=== PATIENT | male | born 1990 | race Caucasian/White ===

== ENCOUNTER 2016-07-03 17:57 | Emergency (ER) | payer OTHER ==
[2016-07-03 18:31] VITALS: PULSE 75; RESP 16; TEMP 97.5; O2SAT 97
[2016-07-03 18:50] VITALS: BP 144/76
--- NOTE | 2016-07-03 20:13 | EDPHY ---
H & P Time Seen by Provider: 07/03/16 18:52 HPI/ROS: CHIEF COMPLAINT: Right index finger laceration HISTORY OF PRESENT ILLNESS: 25-year-old male presents emergency department with a laceration to his right index finger that he sustained at work 4 hours prior to arrival. Patient reports his finger got pinched between 2 metal heavy rods at work. He is [id number], tetanus is up-to-date, denies numbness or tingling in his finger, denies other complaints. Smoking Status: Never smoked Physical Exam: GEN: Awake, alert, oriented, no acute distress RESP: nl resp effort MSK: Right index finger with full active flexion and extension against resistance, 2 point discrimination intact, cap refill less than 2 seconds SKIN: 1.5 cm flap laceration to dorsal aspect of right index finger over PIP joint, extensor tendon laceration Constitutional: Initial Vital Signs Temperature (C) 36.4 C 07/03/16 18:29 Heart Rate 75 07/03/16 18:29 Respiratory Rate 16 07/03/16 18:29 Blood Pressure 144/76 H 07/03/16 18:29 O2 Sat (%) 97 07/03/16 18:29 O2 Delivery Mode Room Air Allergies/Adverse Reactions: penicillin G Allergy (Verified 07/03/16 18:50) Home Medications: Medication Instructions Recorded Cephalexin [Keflex] 500 mg PO TID 5 Days 07/03/16 Seroquel 07/03/16 Trileptal 07/03/16 MDM/Departure - MDM Diagnostics: Right index finger x-ray independently reviewed by me Impression: Negative. No acute fracture. Dictated By: Adria Spicer MD Procedures: Procedure: Laceration repair. Verbal consent was obtained from the patient. The 1.5 cm laceration on the right index finger was anesthetized using digital block with 1% lidocaine without epinephrine mixed with 0.5% bupivacaine without epinephrine. The wound was carefully irrigated by the emergency department auto body repair technician. Next, the wound was prepped and draped in sterile fashion and explored to its base with a gloved finger. Extensor tendon injury was identified. No vascular injury was identified. No foreign bodies were identified. The wound was repaired with 5.0 Prolene, 4 simple interrupted sutures. The wound repair was simple. The procedure was performed by myself. Tetanus and antibiotic status were addressed. ED Course/Re-evaluation: Patient with a laceration to his right index finger with a extensor tendon laceration. Patient was given 1 g of Ancef IV in the emergency department, he was irrigated well by the emergency department auto body repair technician and skin was loosely tacked together. Patient was discharged with a dressing and a splint, he is given the hand surgeon for follow-up. He is given return precautions and he is given a prescription for Keflex. - Depart Disposition: Home, Routine, Self-Care Clinical Impression: Laceration of right index finger Extensor tendon laceration of finger with open wound Qualifiers: Encounter type: initial encounter Qualified Code(s): S66.529A - Laceration of intrinsic muscle, fascia and tendon of unspecified finger at wrist and hand level, initial encounter; S61.209A - Unspecified open wound of unspecified finger without damage to nail, initial encounter Condition: Good Instructions: Finger Laceration (ED) Additional Instructions: Take antibiotics as prescribed, 500 mg of Keflex 3 times a day for 5 days. Follow up with the hand surgeon at 1st available appointment, call tomorrow morning to schedule this. Keep your dressing clean and dry with splint in place until your follow-up appointment. Return to the emergency department for any signs of infection, other questions or concerns. Stand Alone Forms: Work Comp Follow Up Prescriptions: Cephalexin [Keflex] 500 mg PO TID 5 Days Referrals: Kevin Sequeira MD [Medical Doctor] - As per Instructions (Hand surgeon)
[2016-07-03] MEDS ORDERED: ceFAZolin 1 GM VIAL IVP ONE (20:28)
[2016-07-03] MEDS ORDERED: CEFAZOLIN 1 GM/DEXTROSE/50 ML BAG IV ONE (20:35)
== END 2016-07-03 21:07 | disposition home or self-care (01) ==
PROC: 0HQFXZZ Repair Right Hand Skin, External Approach (ICD-10-PCS; principal; 2016-07-03)
DX: S66.520A Laceration of intrinsic muscle, fascia and tendon of right index finger at wrist and hand level, initial encounter (principal); W23.0XXA Caught, crushed, jammed, or pinched between moving objects, initial encounter; Y92.69 Other specified industrial and construction area as the place of occurrence of the external cause; Y99.0 Civilian activity done for income or pay; Y93.89 Activity, other specified
CPT/HCPCS: 96374; J0690; L3925